=== PATIENT | female | born 1990 | race Caucasian/White ===

== ENCOUNTER 2018-10-25 17:06 | Emergency (ER) | payer MEDICAID ==
[~2018-10-25] VITALS: Ht 160 cm; Wt 59.5 kg
--- NOTE | 2018-10-25 17:22 | NUR ---
PT AMBULATED TO BED 3 WITH STEADY GAIT.
[2018-10-25] MEDS ORDERED: cefTRIAXone 250 MG in LIDOCAINE MPF 1% - 5 mL VIAL 0.9 ML IM ONE (17:45)
[2018-10-25] MEDS ORDERED: AZITHROMYCIN 250 MG TAB PO ONE (17:45)
[2018-10-25 18:12] VITALS: BP 118/59
--- NOTE | 2018-10-25 18:12 | NUR ---
Patient discharged by Dr Raphael with v/s stable. Written and verbal after care instructions given and explained. Patient alert, oriented and verbalized understanding of instructions. Ambulatory with steady gait. All questions addressed prior to discharge. ID band removed. Patient advised to follow up with PMD. Rx of Doycycline, Hydrocortisone given. Patient educated on indication of medication including possible reaction and side effects. Opportunity to ask questions provided and answered.
[2018-10-27 06:07] LABS: CHLAMYDIA TRACHOMATIS AMP DNA Negative (Negative)
== END 2018-10-25 18:12 | disposition home or self-care (01) ==
LOC: MED 17:06
DX: L30.3 Infective dermatitis (principal); Z20.2 Contact with and (suspected) exposure to infections with a predominantly sexual mode of transmission
CPT/HCPCS: 36415; 87491; 96372; 99283; J0696; J2001

== ENCOUNTER 2019-01-26 17:46 | Emergency (ER) | payer MEDICAID ==
[~2019-01-26] VITALS: Ht 160 cm; Wt 59.0 kg
--- NOTE | 2019-01-26 17:58 | NUR ---
PATIENT AMBULATED TO BED 8 AT THIS TIME.
[2019-01-26 18:02] VITALS: BP 133/71
[2019-01-26] MEDS ORDERED: DEXAMETHASONE 10 MG/ML VIAL IM ONE (18:15)
--- NOTE | 2019-01-26 18:16 | NUR ---
28/F came to ER with c/o generalized pruritic rash x 1 week. Started after using a new body scrub on 3 separate occasions. Denies pain. States rash is spreading. Has not taken any meds to tx at home. Denies nay past medical hx. denies any pain. respiration even and non-labored. Has rash all over the body. ER provider to see the pt. will contiue to monitor pt. Hx- n/a
[2019-01-26 18:43] VITALS: BP 133/71
--- NOTE | 2019-01-26 18:44 | NUR ---
Patient discharged with v/s stable. Written and verbal after care instructions given and explained. Patient alert, oriented and verbalized understanding of instructions. Ambulatory with steady gait. All questions addressed prior to discharge. ID band removed. Patient advised to follow up with PMD. Rx of PREDNISONE,BENADRYL, MOTRIN AND HYDROCORTISONE CREAM given. Patient educated on indication of medication including possible reaction and side effects. Opportunity to ask questions provided and answered.
--- NOTE | 2019-01-26 18:45 | NUR ---
Note elizabethone in EDM - 01/26/19 at 1845 by DEIDRE Patient discharged with v/s stable. Written and verbal after care instructions given and explained. Patient alert, oriented and verbalized understanding of instructions. Ambulatory with steady gait. All questions addressed prior to discharge. ID band removed. Patient advised to follow up with PMD. Rx of TYLENOL NORCO given. Patient educated on indication of medication including possible reaction and side effects. Opportunity to ask questions provided and answered.
== END 2019-01-26 18:44 | disposition home or self-care (01) ==
LOC: MED 17:46
DX: L30.9 Dermatitis, unspecified (principal)
CPT/HCPCS: 96372; 99283; J1100; Q0163

== ENCOUNTER 2020-10-20 19:11 | Emergency (ER) | payer MEDICAID ==
[~2020-10-20] VITALS: Ht 160 cm; Wt 62.6 kg
[2020-10-20 19:15] VITALS: BP 117/76
--- NOTE | 2020-10-20 19:15 | NUR ---
TO [facility]ENT AMBULATORY
[2020-10-20 19:28] VITALS: BP 117/76
--- NOTE | 2020-10-20 19:30 | NUR ---
SEEN AND EXAMINED BY MELVIN
--- NOTE | 2020-10-20 19:40 | NUR ---
PATIENT ELOPED FROM FACILITY. DISCHARGE INSTRUCTIONS NOT GIVEN TO PATIENT. DR. PIMENTEL NOTIFIED.
== END 2020-10-20 19:40 | disposition left against medical advice (07) ==
LOC: MED 19:11
DX: J18.9 Pneumonia, unspecified organism (principal); Z20.822 Contact with and (suspected) exposure to COVID-19
CPT/HCPCS: 99281

== ENCOUNTER 2023-10-26 11:34 | Emergency (ER) | payer MEDICAID ==
[~2023-10-26] VITALS: Ht 160 cm; Wt 77.7 kg
[2023-10-26 11:40] VITALS: BP 111/70; PULSE 83; RESP 18; TEMP 98.3; O2SAT 98
[2023-10-26 12:33] LABS: BASOPHILS % (AUTO) 0.2 % (0.0-2.0); EOSINOPHILS # (AUTO) 0.1 K/uL (0-0.4); EOSINOPHILS % (AUTO) 2.9 % (0.0-4.0); HEMOGLOBIN 11.5 g/dL (12.0-16.0); LYMPHOCYTES # (AUTO) 0.8 K/uL (2.5-16.5); LYMPHOCYTES % (AUTO) 20.8 % (20.5-51.1); MEAN CORPUSCULAR HEMOGLOBIN 27 pg (27-31); MEAN CORPUSCULAR HGB CONC 33 g/dL (33-37); MEAN CORPUSCULAR VOLUME 80.9 fL (80-94); MONOCYTES # (AUTO) 0.4 K/uL (0.8-1.0); MONOCYTES % (AUTO) 11.2 % (1.7-9.3); NEUTROPHILS # (AUTO) 2.5 K/uL (1.8-7.7); NEUTROPHILS % (AUTO) 64.9 % (42.2-75.2); PLATELET COUNT (AUTO) 246 K/uL (140-450); RED BLOOD CELL COUNT(AUTO) 4.33 MIL/uL (4.20-5.40); RED CELL DISTRIBUTION WIDTH 17.2 % (11.6-13.7); WHITE BLOOD COUNT (AUTO) 3.9 K/uL (4.8-10.8)
[2023-10-26] MEDS: ONDANSETRON 4 MG ODT PO ONE (12:41)
[2023-10-26] MEDS: ALUMINUM HYD/MAG/SIMETHICONE 30 ML UDC PO ONE (12:41)
[2023-10-26 13:00] VITALS: O2SAT 98
[2023-10-26 13:05] LABS: CALCIUM 7.3 mg/dL (8.5-10.1); CARBON DIOXIDE 26.1 mmol/L (21-32); CREATININE 0.8 mg/dL (0.6-1.3); POTASSIUM 3.1 mmol/L (3.5-5.1)
[2023-10-26 13:07] LABS: ALBUMIN 2.9 g/dL (3.4-5.0); TOTAL BILIRUBIN 0.2 mg/dL (0.0-1.0); TOTAL PROTEIN, SERUM 6.1 g/dL (6.4-8.2)
[2023-10-26] MEDS ORDERED: FAMO-90 PO (13:52)
[2023-10-26] MEDS ORDERED: ONDA-188 SL (13:52)
[2023-10-26 13:55] LABS: APPEARANCE,URINE CLEAR (CLEAR); BILIRUBIN,URINE NEGATIVE (NEGATIVE); BLOOD, URINE NEGATIVE (NEGATIVE); COLOR,URINE YELLOW (YELLOW); LEUKOCYTE ESTERASE ,URINE NEGATIVE (NEGATIVE); NITRITE, URINE NEGATIVE (NEGATIVE); PROTEIN,URINE TRACE (NEGATIVE); UGLUCOSE NEGATIVE (NEGATIVE); UROBILINOGEN,URINE 0.2 EU/dL (0.2 - 1)
[2023-10-26] MEDS: POTASSIUM CHLORIDE 10 MEQ TABER PO ONE (14:02)
== END 2023-10-26 14:21 | disposition home or self-care (01) ==
LOC: MED 11:34
DX: K29.70 Gastritis, unspecified, without bleeding (principal); R51.9 Headache, unspecified; R42 Dizziness and giddiness; N89.8 Other specified noninflammatory disorders of vagina; H53.8 Other visual disturbances; Z98.890 Other specified postprocedural states; Z86.718 Personal history of other venous thrombosis and embolism; Z79.899 Other long term (current) drug therapy
CPT/HCPCS: 36415; 80048; 80076; 81003; 81025; 83690; 85025; 99284; Q0162